=== PATIENT | female | born 1985 | race Caucasian/White ===

== ENCOUNTER → 2022-05-31 15:10 | Outpatient (CLI) | payer OTHER, SELFPAY ==
--- NOTE | ~2022-05-31 | US_ITS ---
EXAMINATION: US transvaginal DATE: 05/31/2022 15:35 INDICATION: Pelvic pain. Low back pain. Comparison:No prior studies for comparison. TECHNIQUE: Multiple endovaginal sonographic images of the pelvis performed. FINDINGS: The uterus measures 8.8 x 5.2 x 6.1 cm. The endometrial complex measures 1.4 cm. The right ovary measures 3.2 x 1.7 x 2.8 cm and the left ovary measures 4.2 x 2.4 x 2.4 cm. There is a slightly hyperechoic mass measuring 2.2 cm and the left ovary. No internal vascularity. There are s mall follicles in each ovary. Normal doppler signal in both ovaries. There is no free fluid in the pelvis. There are no abnormal masses seen on either side. IMPRESSION: 1. Slightly hyperechoic mass of the left ovary measuring 2.2 cm. Most common considerations include f ibroma/fibrothecoma, endometrioma and less likely malignant serous epithelial tumors. Recommend follo w-up ultrasound in 6-8 weeks. 2: Endometrial thickening measuring 1.4 cm. Reviewed, dictated and finalized at location A. IMPRESSION: 1. Slightly hyperechoic mass of the left ovary measuring 2.2 cm. Most common co nsiderations include fibroma/fibrothecoma, endometrioma and less likely maligna nt serous epithelial tumors. Recommend follow-up ultrasound in 6-8 weeks. 2: Endometrial thickening measuring 1.4 cm.
== END ==
PROVIDERS: PCP Nurse Practitioner; Visit Provider Nurse Practitioner
DX: R10.2 Pelvic and perineal pain (principal)
CPT/HCPCS: 76830

== ENCOUNTER → 2023-06-04 10:56 | Outpatient (CLI) | payer OTHER, SELFPAY ==
--- NOTE | ~2023-06-04 | US_ITS ---
EXAMINATION: US transvaginal DATE: 06/04/2023 11:19 INDICATION: Ovarian cyst. TECHNIQUE: Multiple transvaginal sonographic images of the pelvis were obtained. COMPARISON: Ultrasound 05/31/2022 FINDINGS: The uterus measures 8.2 x 4.8 x 5.3 cm. There is physiologic free fluid in the pelvis. The endometria l complex measures 18 mm in thickness. The right ovary measures 2.7 x 2.4 x 2.0 cm. The left ovary me asures 4.1 x 2.5 x 2.3 cm. There is normal vascular flow in the ovaries. IMPRESSION: 1. Normal ovaries. Reviewed, dictated and finalized at location E. IMPRESSION: 1. Normal ovaries.
== END ==
PROVIDERS: PCP Obstetrics & Gynecology Gynecology; Visit Provider Obstetrics & Gynecology Gynecology
DX: N83.209 Unspecified ovarian cyst, unspecified side (principal)
CPT/HCPCS: 76830